=== PATIENT | female | born 2000 | race Caucasian/White ===

== ENCOUNTER 2023-06-08 11:46 | Outpatient (AMB) | payer OTHER, SELFPAY ==
--- NOTE | 2023-06-08 11:50 | MHC.OFFWIV ---
Intake Vital Signs 06/08/23 11:51 Weight 169 lb BP 110/70 Blood Pressure Location Rt brachial Position Sitting Pulse 76 Pulse Source Pulse Oximeter Temp 98 F Temp Source Temporal Artery Scan Pulse Oximetry (%) 99 Oxygen Delivery Method Room Air Intake Visit Reasons: EST/lost voice Intake Note: Patient here because she has lost her voice, sore throat, cough and headaches which has been present for about 3 days but today it has worsened. Patient Tobacco Use Status: Never used Tobacco Allergies laughing gas Adverse Reaction (Uncoded 06/08/23 11:53) upset stomach Do you need a note to return to daycare/school/sports/work: Yes HPI HPI Comments History of Present Illness Details 22-year-old female who presents for sore throat x3 days. She endorses pain with swallowing, loss of voice. 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 Housing: House Patient Tobacco Use Status: Never used Tobacco e-Cigarette/Vaping Use: Never Used service: No Current occupational status: employed Cognitive needs: No Hearing needs: No Vision needs: No Review of Systems Const All systems reviewed & are unremarkable except as noted in HPI and below Denies fever(s), Denies headache(s) and Denies weakness Eyes Reports no additional complaints ENT Reports change in voice, Denies headache(s) and Reports sore throat Card Reports no additional complaints, Denies chest pain, Denies leg edema and Denies dyspnea Resp Denies cough and Denies dyspnea GI Denies abdominal pain, Denies nausea and Denies vomiting Denies urinary frequency and Denies dysuria Musc Reports no additional complaints Neuro Denies headache(s) and Denies weakness Psych Reports no additional complaints Endo Reports no additional complaints Physical Exam Vital Signs: Last Vital Signs Temp 98 F 06/08/23 11:51 Pulse 76 06/08/23 11:51 BP 110/70 06/08/23 11:51 Pulse Ox 99 06/08/23 11:51 Oxygen Delivery Method Room Air 06/08/23 11:51 Const General: healthy appearing, well developed and alert HEENT Other: erythema in the posterior pharynx. Tonsils 1+ bilaterally. No exudates. Uvula midline no trismus . voice is hoarse. No drooling airway maintained Results AMB Rapid Strep AMB Rapid Strep Negative Last Edit by ENRIKE Hector on 06/08/23 13:05 Assessment & Plan Assessment & Plan (1) Laryngitis: Code(s): J04.0 - Acute laryngitis (2) Pharyngitis: Code(s): J02.9 - Acute pharyngitis, unspecified Plan VSS. On exam patient presents alert and oriented exam notable for erythema in the posterior pharynx. Tonsils 1+ bilaterally. No exudates. Uvula midline no trismus . voice is hoarse. No drooling airway maintained. strep swab negative. Likely viral will prescribe 1 dose of dexamethasone as well as Toradol. Discharge instructions, follow up and treatment are discussed with patient in my usual fashion. Alternatives in treatment are also discussed. The patient will return for worsening symptoms or as needed. Advised that any labs/imaging ordered will be followed up on and contact made if further treatment needed. Counseled that patient's condition may require further evaluation and/or treatment. Symptoms of concern for worsening disorder discussed in detail in my customary manner. Patient does verbalize understanding of the plan, there are no apparent barriers to communication. The patient is given the opportunity to ask questions and have them answered to his/her satisfaction Orders: Orders AMB Rapid Strep Screen Today Z13.9 - Encounter for screening, unspecified Medications: New dexamethasone 6 mg PO DAILY 1 tab 0RF ketorolac 10 mg PO TID 5 days PRN 15 tabs 0RF pain Patient Instructions: You short dose likely viral experiencing worsening symptoms such as difficulty breathing difficulty swallowing, drooling, fever or concerning symptoms not mentioned above please present to the emergency room Coding Level of Care Code Est Pt Level 3 (44589) Diagnoses Laryngitis J04.0 Pharyngitis J02.9
[2023-06-08 11:51] VITALS: BP 110/70; PULSE 76; TEMP 36.6; O2SAT 99
== END 2023-06-08 12:25 | disposition home or self-care (01) ==
PROVIDERS: PCP Internal Medicine; Visit Provider Physician Assistant
DX: J04.0 Acute laryngitis (principal); J02.9 Acute pharyngitis, unspecified
CPT/HCPCS: 87880; 99213

== ENCOUNTER 2023-07-13 08:00 | Outpatient (RCR) | payer OTHER, SELFPAY ==
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
--- NOTE | 2023-08-09 09:12 | MHC.PT.DC ---
[facility] [place] Office [place] Office [place] Office [address] [phone] F: [phone] F: [phone] F: [phone] F: [phone] Physical Therapy Discharge Report Diagnosis: Low back pain, unspecified Date of Surgery: NA Date of Evaluation: 04/26/23 Date of Discharge: 08/09/23 Treatments to Date: 12 Cancellations to Date: 3 No Shows to Date: 0 Discharge Status: Achieved Goals Improved Function Independent with HEP Discharge Summary: Taylor has completed 12 PT visits and has achieved all goals set for her. She is independent with her HEP and has been doing them on a regular basis. She is therefore being d/c from PT today. Reviewed performing HEP in pain-free ranges and pacing self with gradual increase in resistance as her strength continues to improve Electronically signed by: Gin Fraser PT Please sign and return to therapist. Thank you for your referral.
== END 2023-08-09 09:12 | disposition home or self-care (01) ==
LOC: HO.PT 08:00
PROVIDERS: PCP Internal Medicine; Visit Provider Internal Medicine
DX: M54.50 Low back pain, unspecified (principal)
CPT/HCPCS: 97110; 97112; 97140; 97161

== ENCOUNTER 2023-08-18 12:25 | Outpatient (REF) | payer OTHER, SELFPAY | END 2023-08-18 12:26 | disposition home or self-care (01) | LOC: HO.HMGCLNP 12:25 | PROVIDERS: Visit Provider Internal Medicine | DX: Z12.4 Encounter for screening for malignant neoplasm of cervix (principal); N92.6 Irregular menstruation, unspecified | CPT/HCPCS: 88142 ==

== ENCOUNTER 2023-08-18 14:27 | Outpatient (AMB) | payer OTHER, SELFPAY ==
[2023-08-18 14:27] VITALS: BP 110/64; PULSE 69; O2SAT 98; BMI 24.9
--- NOTE | 2023-08-18 14:27 | A.OFFPC_ITS ---
Vital Signs 08/18/23 14:27 Height 5 ft 8.75 in Weight 167 lb 2 oz BMI 24.9 BP 110/64 Blood Pressure Location Rt brachial Position Sitting Pulse 69 Pulse Source Pulse Oximeter Pulse Oximetry (%) 98 Oxygen Delivery Method Room Air Intake Visit Reasons: RT Lump breast/Heavy Bleeding a/Menstrual cycle Intake Note: pt is here for a lump in her right breast that is going away but it was hard and swollen pt says their was some bruising pt has c/o bloody discharge since her menstrual cycle has stopped for the past week Allergies laughing gas Adverse Reaction (Uncoded 08/18/23 14:31) upset stomach Medication List - Last Reconciled 08/18/23 by Laura Leal MD No Known Home Meds Tobacco use date assessed: 08/18/23 Dental Screening Dental Screen Date: 08/18/23 Did you have a dental visit in the last 12 months?: Yes Did you have a dental problem in the last 6 months where you did not have access to dental care?: No Was dental information given to patient?: Patient has dentist HPI RT Lump breast/Heavy Bleeding a/Menstrual cycle HPI Details Pt c/o irregular vaginal bleeding/spotting on and off for a few months but increased in duration and intensity last month. Pt is sexually active using condoms.Pt noticed a tender lump on R breast 2 weeks ago for 3 days. She has been under a lot of stress at work, working in [employer] in [employer]. Pt c/o increased anxiety but denies depression/suicidal ideation. 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 Arias Blackburn, Bhavani Harrell, Eugene Kenny and colleagues, with an educational bradly from [employer]. Review of Systems Const All systems reviewed & are unremarkable except as noted in HPI and below Reports no additional complaints Eyes Reports no additional complaints ENT Reports no additional complaints Card Reports no additional complaints Resp Reports no additional complaints Physical exam (Primary Care) Vital Signs: Last Vital Signs Pulse 69 08/18/23 14:27 BP 110/64 08/18/23 14:27 Pulse Ox 98 08/18/23 14:27 Oxygen Delivery Method Room Air 08/18/23 14:27 BMI result Body Mass Index 24.9 Tobacco/Smoking Status: Tobacco use Status Tobacco use date assessed 08/18/23 08/18/23 14:34 Patient Tobacco Use Status Never used Tobacco 08/18/23 14:34 e-Cigarette/Vaping Use Never Used 08/18/23 14:34 Thrive Assessment: Date of Thrive Assessment Date Thrive assessed 01/17/23 08/18/23 14:34 Const General: no acute distress HENMT Head: Yes normal to inspection Neck Neck: Yes no lymphadenopathy and Yes supple Chest Breast/axilla inspection: normal inspection of the breasts Breast/axilla palpation: normal palpation of the breasts and no axillary lymphadenopathy Resp Effort & Inspection: normal respiratory effort Auscultation: clear to auscultation bilaterally Cardio Rhythm: regular rhythm Heart sounds: S1 normal heart sound present and S2 normal heart sound present GI Inspection: Yes normal to inspection Palpation (GI): Soft to palpation Percussion: Yes normal to percussion Auscultation: normal bowel sounds External Female Exam: normal external appearance Speculum Exam - Vagina: normal appearance of the vagina Speculum Exam - Cervix: normal appearance of the cervix Bimanual exam- vagina & uterus: normal bimanual exam Assessment and Plan Assessment & Plan (1) Irregular menstrual bleeding: Code(s): N92.6 - Irregular menstruation, unspecified Plan: check labs, STD, refer to hydro pneumatic tester. PAP done today (2) Anxiety: Code(s): F41.9 - Anxiety disorder, unspecified Plan: refer to counseling, pt declined meds Orders: Orders Comprehensive Met. Panel Today Z00.00 - Encounter for general adult medical examination without abnormal findings Complete Blood Count Auto Diff Today Z00.00 - Encounter for general adult medical examination without abnormal findings TSH reflex Free T4 Today Z00.00 - Encounter for general adult medical examination without abnormal findings Pap Smear Today N92.6 - Irregular menstruation, unspecified, Z00.00 - Encounter for general adult medical examination without abnormal findings CT NG by PCR Today F41.9 - Anxiety disorder, unspecified, N92.6 - Irregular menstruation, unspecified, Z00.00 - Encounter for general adult medical examination without abnormal findings Ur Preg Test Today N92.6 - Irregular menstruation, unspecified Lipid Panel Today Z00.00 - Encounter for general adult medical examination without abnormal findings IRON PROFILE Today Z00.00 - Encounter for general adult medical examination without abnormal findings HIV Ab/Ag Today F41.9 - Anxiety disorder, unspecified, N92.6 - Irregular menstruation, unspecified, Z00.00 - Encounter for general adult medical examination without abnormal findings Syphilis Screen Today F41.9 - Anxiety disorder, unspecified, N92.6 - Irregular menstruation, unspecified, Z00.00 - Encounter for general adult medical examination without abnormal findings Referrals Counseling Referral F41.9 - Anxiety disorder, unspecified 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
== END 2023-08-18 15:33 | disposition home or self-care (01) ==
LOC: HO.HMGC 14:27
PROVIDERS: PCP Internal Medicine; Visit Provider Internal Medicine
DX: N92.6 Irregular menstruation, unspecified (principal); F41.9 Anxiety disorder, unspecified
CPT/HCPCS: 99214

== ENCOUNTER 2023-08-24 10:50 | Outpatient (REF) | payer OTHER, SELFPAY | END 2023-08-24 10:51 | disposition home or self-care (01) | LOC: HO.LAB 10:50 | PROVIDERS: Visit Provider Internal Medicine | DX: Z13.89 Encounter for screening for other disorder (principal) ==

== ENCOUNTER 2023-10-23 12:17 | Outpatient (AMB) | payer OTHER, SELFPAY ==
--- NOTE | 2023-10-23 12:21 | MHC.OFFVIS ---
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 Required: No Information Interpreted: non-clinical & clinical Team Manager: Team Manager Present (Aidyn) Allergies laughing gas Adverse Reaction (Uncoded 10/23/23 12:29) upset stomach Is last menstrual period known: Yes Last menstrual period: 10/16/23 Post menopausal: No HPI HPI Comments History of Present Illness Details Presenting referred from PCP regarding abnormal Pap smear showing LSIL on Pap smear, no HPV done, in addition patient is complaining of intermenstrual spotting for the last 3 months PFSH Surgical History Hx of wisdom tooth extraction History of hernia surgery Family History Maternal Grandmother Breast cancer Maternal Aunt Breast cancer Social History Household Members Other:: living with parents, 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, 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2 General: Yes no CVA tenderness External Female Exam: normal external appearance and normal appearance of the urethra Speculum Exam - Vagina: normal appearance of the vagina, normal palpation, no lesions and no masses Speculum Exam - Cervix: normal appearance of the cervix, normal palpation, no lesions, no masses and nontender Bimanual exam- vagina & uterus: normal bimanual exam, normal palpation, uterine size normal, normal palpation, uterine shape normal, No Cervical tenderness present and non-tender Bimanual Exam- Adnexa, other: normal adnexae Back/Spine/Pelvis Back: no CVA tenderness Assessment & Plan Assessment & Plan (1) Low grade squamous intraepith lesion on cytologic smear cervix (lgsil): Code(s): R87.612 - Low grade squamous intraepithelial lesion on cytologic smear of cervix (LGSIL) Plan: Per ASCCP guidelines management of MARY JO 1 below the age of 25, repeat cytology testing in 1 year, in 09/01. Instructions given the patient to schedule an appointment in 09/01 for repeat cytology. All questions answered, the patient verbalized understanding. (2) Abnormal uterine bleeding: Code(s): N93.9 - Abnormal uterine and vaginal bleeding, unspecified Plan: GC and chlamydia taken CBC, TSH, prolactin HCG, and pelvic ultrasound ordered. Discussed with the patient the different causes of abnormal bleeding including thyroid disorders, uterine and ovarian pathology and other potential causes. Discussed with the patient the work up including CBC (to r/o anemia), TSH, pelvic Ultrasound. All questions answered and the patient verbalized understanding. Instructed the patient to schedule an appointment for an endometrial biopsy in 2 weeks. Orders: Orders HCG Quantitative Today N93.9 - Abnormal uterine and vaginal bleeding, unspecified Prolactin Today N93.9 - Abnormal uterine and vaginal bleeding, unspecified US pelvic and transvaginal Today N93.9 - Abnormal uterine and vaginal bleeding, unspecified Complete Blood Count no Diff Today N93.9 - Abnormal uterine and vaginal bleeding, unspecified TSH reflex Free T4 Today N93.9 - Abnormal uterine and vaginal bleeding, unspecified Coding Level of Care Code New Pt Level 3 (86501) Diagnoses Low grade squamous intraepith lesion on cytologic smear cervix (lgsil) R87.612 Abnormal uterine bleeding N93.9
[2023-10-23 12:22] VITALS: BP 120/72; BMI 25.2
== END 2023-10-23 12:58 | disposition home or self-care (01) ==
LOC: HO.HWS 12:17
PROVIDERS: PCP Internal Medicine; Visit Provider Obstetrics & Gynecology
DX: R87.612 Low grade squamous intraepithelial lesion on cytologic smear of cervix (LGSIL) (principal); N93.9 Abnormal uterine and vaginal bleeding, unspecified
CPT/HCPCS: 99203

== ENCOUNTER 2023-10-23 12:17 | Outpatient (REF) | payer OTHER, SELFPAY ==
[2023-10-24 11:19] LABS: CT PCR NOT DETECTED (Not Detect.); NG PCR NOT DETECTED (Not Detect.)
== END 2023-10-23 12:18 | disposition home or self-care (01) ==
LOC: HO.LNP 12:17
PROVIDERS: PCP Internal Medicine; Visit Provider Obstetrics & Gynecology
DX: N93.9 Abnormal uterine and vaginal bleeding, unspecified (principal); Z20.2 Contact with and (suspected) exposure to infections with a predominantly sexual mode of transmission
CPT/HCPCS: 0353U

== ENCOUNTER 2023-11-14 16:22 | Outpatient (REF) | payer OTHER, SELFPAY ==
--- NOTE | ~2023-11-14 | US_ITS ---
EXAMINATION: US PELVIS CLINICAL INFORMATION: Abnormal uterine bleeding; the patient is currently having her menstrual period. COMPARISON: None available. TECHNIQUE: Ultrasound of the pelvis is performed using both transabdominal and transvaginal transducers along with Doppler. Transvaginal imaging is performed due to inadequate visualization transabdominally. FINDINGS: Uterus: The uterus is anteverted and measures 7.6 x 2.8 x 4.0 cm. The double wall endometrial thickness is 5 mm. The uterus is smooth in contour and has normal myometrial echogenicity. No visible fibroid. Adnexa: Both ovaries are visualized. There is normal color flow to the adnexa. There is no ovarian torsion. There is no pelvic ascites or fluid collection. Right ovary measures 2.4 x 2.1 x 2.4 cm, volume 6.3 mL. Physiologic follicles are incidentally noted. Left ovary measures 1.6 x 1.1 x 1.3 cm, volume 1.2 mL. US/US pelvic and transvaginal IMPRESSION: Unremarkable examination.
== END 2023-11-14 16:23 | disposition home or self-care (01) ==
LOC: HO.US 16:22
PROVIDERS: PCP Internal Medicine; Visit Provider Obstetrics & Gynecology
DX: N93.9 Abnormal uterine and vaginal bleeding, unspecified (principal)
CPT/HCPCS: 76830; 76856

== ENCOUNTER 2023-12-05 15:24 | Outpatient (AMB) | payer OTHER, SELFPAY ==
--- NOTE | 2023-12-05 15:29 | A.OFFVIS_ITS ---
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 TSH, CBC, prolactin, hCG were not done yet. GC/chlamydia were negative. 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 Patient Tobacco Use Status: Never used Tobacco e-Cigarette/Vaping Use: Never Used service: No Current occupational status: employed Cognitive needs: No Hearing needs: No Vision needs: No Female Reproductive History Menstrual Age of Menarche: 15 Date of last menstrual period: 11/10/23 Review of Systems Const All systems reviewed & are unremarkable except as noted in HPI and below Reports as per HPI and Reports no additional complaints GI Reports no additional complaints Reports no additional complaints Physical Exam Vital Signs: Last Vital Signs BP 110/70 12/05/23 15:33 BMI result Body Mass Index 25.1 Assessment & Plan Assessment & Plan (1) Abnormal uterine bleeding: Code(s): N93.9 - Abnormal uterine and vaginal bleeding, unspecified Plan: Instructions given the patient to have her blood drawn as soon as possible. Discussed with the patient the results of the work up done and options of treatment including BCP's, cyclic Provera, Mirena IUD. All pros, cons, risks and benefits if each option was discussed with the patient and the patient decided to think about it and get back to us. All questions answered the patient verbalized understanding. Coding Level of Care Code Est Pt Level 3 (12580) Diagnoses Abnormal uterine bleeding N93.9
[2023-12-05 15:33] VITALS: BP 110/70; BMI 25.1
== END 2023-12-05 16:20 | disposition home or self-care (01) ==
LOC: HO.HWS 15:25
PROVIDERS: PCP Internal Medicine; Visit Provider Obstetrics & Gynecology
DX: N93.9 Abnormal uterine and vaginal bleeding, unspecified (principal)
CPT/HCPCS: 99213

== ENCOUNTER → 2023-12-05 15:24 | Outpatient (BNVA) | payer OTHER, SELFPAY | PROVIDERS: PCP Internal Medicine; Visit Provider Obstetrics & Gynecology ==

== ENCOUNTER 2024-01-26 08:27 | Outpatient (AMB) | payer OTHER, SELFPAY ==
[2024-01-23 13:15] VITALS: BP 112/64; PULSE 74; O2SAT 99; BMI 25.1
--- NOTE | 2024-01-23 13:15 | A.OFFPC_ITS ---
Vital Signs 01/23/24 13:15 Height 5 ft 8 in Weight 165 lb BMI 25.1 BP 112/64 Blood Pressure Location Rt brachial Position Sitting Pulse 74 Pulse Source Pulse Oximeter Pulse Oximetry (%) 99 Oxygen Delivery Method Room Air Intake Visit Reasons: Annual PE Intake Note: Pt is here today for ehr PE Is last menstrual period known: Yes Last menstrual period: 01/24/24 Allergies laughing gas Adverse Reaction (Uncoded 01/26/24 08:32) upset stomach Medication List - Last Reconciled 01/26/24 by Laura Leal MD No Known Home Meds Tobacco use date assessed: 01/26/24 Dental Screening Dental Screen Date: 01/26/24 Did you have a dental visit in the last 12 months?: Yes Did you have a dental problem in the last 6 months where you did not have access to dental care?: No Was dental information given to patient?: Patient has dentist HPI Annual PE HPI Details Pt presents for PE. Pt c/o chronic anxiety and is under therapist care. Pt c/o chronic vaginal spotting after working out at the gym. Pt was seen by plant operations manager and had pap c/w MARY JO 1 in August last year. Patient has an appointment scheduled with centrifugal chiller technician at [facility] for repeat Pap smear in August. 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 1. Little interest or pleasure in doing things: not at all 2. Feeling down, depressed, or hopeless: several days 3. Trouble falling or staying asleep, or sleeping too much: not at all 4. Feeling tired or having little energy: several days 5. Poor appetite or overeating: more than half the days 6. Feeling bad about yourself - or that you are a failure or have let yourself or your family down: nearly every day 7. Trouble concentrating on things, such as reading the newspaper or watching television: several days 8. Moving or speaking so slowly that other people could have noticed. Or the opposite - being so fidgety or restless that you have been moving around a lot more than usual: not at all 9. Thoughts that you would be better off or of hurting yourself in some way: not at all Total score: 8 Depression Screening Interpretation: Negative Depression Screening Done: Yes Source: Developed by Drs. Arias Blackburn, Bhavani Harrell, Eugene Kenny and colleagues, with an educational bradly from [employer]. Thrive Questionnaire Date Thrive assessed: 01/26/24 I am a: Patient What is your living situation today?: I have a steady place to live Within the past 12 months, did the food you bought not last and you didn't have the money to get more?: Never true Within the past 12 months, did you worry whether your food would run out before you got money to buy more?: Never true Do you have trouble paying for medicines?: No Do you have trouble getting transportation to medical appointments?: No Do you have trouble paying your heating and electricity bill?: No Do you have trouble taking care of your child, family member or friend?: No Do you have trouble with day-to-day activities such as bathing, preparing meals, shopping, managing finances, etc.?: No Are you currently unemployed and looking for a job?: No Are you interested in more education?: No THRIVE Score: 0 AUDIT C Alcohol Use Questionnaire (AUDIT-C) 1. How often do you have a drink containing alcohol?: Monthly or less 2. How many drinks containing alcohol do you have on a typical day when you are drinking?: 1 or 2 3. How often do you have six or more drinks on one occasion?: Never Total Score: 1 ROBBIN-7 AMB Questionnaire ROBBIN-7 Date ROBBIN - 7 assessed: 01/26/24 Feeling nervous, anxious, or on edge: 3 = Nearly every day Not being able to stop or control worryin = Nearly every day Worrying too much about different things: 3 = Nearly every day Trouble relaxin = Nearly every day Being so restless that it is hard to sit still: 2 = More than half the days Becoming easily annoyed or irritable: 1 = Several days Feeling afraid as if something awful might happen: 2 = More than half the days Total ROBBIN-7 score (0-4 normal; 5-9 mild; 10-14 moderate; 15-21 severe): 17 Source: Developed by Drs. Arias Blackburn, Bhavani Harrell, Eugene Kenny and colleagues, with an educational bradly from [employer]. Review of Systems Const All systems reviewed & are unremarkable except as noted in HPI and below Eyes Reports no additional complaints ENT Reports no additional complaints Card Reports no additional complaints Resp Reports no additional complaints GI Reports no additional complaints Reports no additional complaints Physical exam (Primary Care) Vital Signs: Last Vital Signs Pulse 74 01/23/24 13:15 BP 112/64 01/23/24 13:15 Pulse Ox 99 01/23/24 13:15 Oxygen Delivery Method Room Air 01/23/24 13:15 BMI result Body Mass Index 25.1 Tobacco/Smoking Status: Tobacco use Status Tobacco use date assessed 01/26/24 01/26/24 08:36 Patient Tobacco Use Status Never used Tobacco 01/23/24 13:15 e-Cigarette/Vaping Use Never Used 01/23/24 13:15 PHQ-9: PHQ-9 Score PHQ-9: Total score 8 01/26/24 11:37 Depression Screening Interpretation: Negative Thrive Assessment: Date of Thrive Assessment Date Thrive assessed 01/26/24 01/26/24 08:36 Const General: no acute distress HENMT Head: Yes normal to inspection Ears: hearing grossly normal bilaterally Face and sinus: Yes normal facial exam Mouth: Normal oral and palatal mucosa present Eyes General: appearance normal, both eyes and all related structures Neck Neck: Yes no lymphadenopathy and Yes supple Resp Effort & Inspection: normal respiratory effort Auscultation: clear to auscultation bilaterally Cardio Rhythm: regular rhythm Heart sounds: S1 normal heart sound present and S2 normal heart sound present GI Inspection: Yes normal to inspection Palpation (GI): Soft to palpation Percussion: Yes normal to percussion Auscultation: normal bowel sounds Assessment and Plan Assessment & Plan (1) Annual physical exam: Code(s): Z00.00 - Encounter for general adult medical examination without abnormal findings Plan: Well-balanced diet regular physical activity discussed with the patient (2) Low grade squamous intraepith lesion on cytologic smear cervix (lgsil): Comment: Follow-up with [facility] Code(s): R87.612 - Low grade squamous intraepithelial lesion on cytologic smear of cervix (LGSIL) Coding Level of Care Code Est Pt Prev Care 18-39y(36751) Diagnoses Annual physical exam Z00.00 Low grade squamous intraepith lesion on cytologic smear cervix (lgsil) R87.612
== END 2024-01-26 13:21 | disposition home or self-care (01) ==
PROVIDERS: PCP Internal Medicine; Visit Provider Internal Medicine
DX: Z00.00 Encounter for general adult medical examination without abnormal findings (principal); R87.612 Low grade squamous intraepithelial lesion on cytologic smear of cervix (LGSIL)
CPT/HCPCS: 99395

== ENCOUNTER 2024-08-06 09:17 | Outpatient (REF) | payer OTHER, SELFPAY ==
[2024-08-06 09:41] LABS: MANUAL DIFF FLAG NO
[2024-08-06 10:08] LABS: Basophils Percent Auto 0.2 % (0-2); Eosinophils Absolute Auto 0.1 X10*3/uL (0.0-0.4); Eosinophils Percent Auto 1.2 % (0-4); Hemoglobin 12.7 g/dl (12.0-16.0); Imm Gran Abs Auto 0.01 X10*3/uL (0.00-0.03); Imm Gran Pct Auto 0.2 % (0.0-0.4); Lymphocytes Absolute Auto 1.4 X10*3/uL (1.2-4.9); Lymphocytes Percent Auto 33.4 % (20-40); Mean Corpuscular HGB Conc 33.4 g/dl (31.0-35.0); Mean Corpuscular Hemoglobin 31.2 pg (27.0-33.0); Mean Corpuscular Volume 93.4 fL (80.0-98.0); Monocytes Absolute Auto 0.4 X10*3/uL (0.1-1.2); Monocytes Percent Auto 10.9 % (2-11); Neutrophils Absolute Auto 2.2 x10*3/uL (2.0-8.3); Neutrophils Percent Auto 54.1 % (45-73); Platelet Count 218 X10*3/uL (160-400); Red Blood Count 4.07 X10*6/uL (4.20-5.50); Red Cell Distribution Width 12.1 % (11.0-16.0)
[2024-08-06 10:09] LABS: Hematocrit 38.9 % (37.0-47.0); Hemoglobin 12.8 g/dl (12.0-16.0); Mean Corpuscular HGB Conc 32.9 g/dl (31.0-35.0); Mean Corpuscular Volume 94.2 fL (80.0-98.0); Mean Platelet Volume 10.9 fL (9.4-12.3); Platelet Count 222 X10*3/uL (160-400); Red Blood Count 4.13 X10*6/uL (4.20-5.50); White Blood Count 4.2 X10*3/uL (4.8-10.8)
[2024-08-06 10:46] LABS: UPreg QC Valid YES; Urine Pregnancy NEGATIVE (NEGATIVE)
[2024-08-06 11:00] LABS: Alanine Aminotransferase 16 U/L (0-31); Albumin Level 4.4 g/dL (3.5-5.0); Alkaline Phosphatase 31 U/L (39-117); Anion Gap 13 (12-20); Aspartate Amino Transferase 27 U/L (5-31); Bilirubin Total 1.5 mg/dL (0.0-1.0); Blood Urea Nitrogen 11 mg/dL (9-16); Calcium 9.4 mg/dL (8.4-10.2); Carbon Dioxide 24 mmol/L (22-29); Chloride 106 mmol/L (96-108); Cholesterol 125 mg/dL (<200); Estimated Glomerular Filt Rate > 60; Glucose Random 85 mg/dL (60-115); HDL Cholesterol 46 mg/dL (>40); Iron 176 mcg/dL (30-160); LDL Cholesterol Calculated 64 mg/dL (<100); Percent Iron Saturation 63 % (15-50); Sodium 139 mmol/L (135-145); Total Iron Binding Capacity 280 mcg/dL (228-428); Total Protein 7.2 g/dL (6.5-8.0); Triglycerides 78 mg/dL (<150); Unsaturated Iron Binding 104 ug/dL
[2024-08-06 11:01] LABS: HCG Quantitative < 2 mIU/mL; TSH reflex Free T4 1.09 uIU/mL (0.32-4.0)
[2024-08-06 11:23] LABS: TSH reflex Free T4 1.01 uIU/mL (0.32-4.0)
[2024-08-06 11:44] LABS: HIV AB/AG Nonreactive (Nonreactive); HIV Num 1 0.06 S/CO (0.00-0.99)
[2024-08-06 11:45] LABS: Syphilis Screen Nonreactive (Nonreactive)
[2024-08-06 14:01] LABS: CT PCR NOT DETECTED (Not Detect.); NG PCR NOT DETECTED (Not Detect.)
[2024-08-08 01:14] LABS: Prolactin 5.9 ng/mL
== END 2024-08-06 09:18 | disposition home or self-care (01) ==
LOC: HO.LAB 09:17
PROVIDERS: Absent Provider Obstetrics & Gynecology; PCP Internal Medicine; Visit Provider Internal Medicine
DX: Z00.00 Encounter for general adult medical examination without abnormal findings (principal); F41.9 Anxiety disorder, unspecified; N92.6 Irregular menstruation, unspecified; N93.9 Abnormal uterine and vaginal bleeding, unspecified
CPT/HCPCS: 36415; 80053; 80061; 81025; 83540; 84146; 84443; 84702; 85025; 85027; 86780; 87389; 87491; 87591

== ENCOUNTER 2025-03-07 11:06 | Outpatient (AMB) | payer OTHER, SELFPAY ==
--- NOTE | 2025-03-07 11:12 | A.OFFPC_ITS ---
Vital Signs 03/07/25 11:13 Height 5 ft 8 in Weight 167 lb BMI 25.4 BP 130/74 Blood Pressure Location Lt brachial Position Sitting Respiration 18 Pulse 62 Pulse Source Pulse Oximeter Temp 98.5 F Temp Source Oral Pulse Oximetry (%) 98 Oxygen Delivery Method Room Air Intake Visit Reasons: Annual PE-Reschedule Intake Note: Pt is here today for PE. Allergies laughing gas Adverse Reaction (Uncoded 03/07/25 11:15) upset stomach Tobacco use date assessed: 03/07/25 Dental Screening Dental Screen Date: 03/07/25 Did you have a dental visit in the last 12 months?: Yes Did you have a dental problem in the last 6 months where you did not have access to dental care?: No Was dental information given to patient?: Patient has dentist HPI Annual PE-Reschedule HPI Details Pt presents for PE. Patient broke up with her boyfriend a week ago and it is grieving. 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 1. Little interest or pleasure in doing things: nearly every day 2. Feeling down, depressed, or hopeless: nearly every day 3. Trouble falling or staying asleep, or sleeping too much: nearly every day 4. Feeling tired or having little energy: nearly every day 5. Poor appetite or overeating: nearly every day 6. Feeling bad about yourself - or that you are a failure or have let yourself or your family down: nearly every day 7. Trouble concentrating on things, such as reading the newspaper or watching television: more than half the days 8. Moving or speaking so slowly that other people could have noticed. Or the opposite - being so fidgety or restless that you have been moving around a lot more than usual: not at all 9. Thoughts that you would be better off or of hurting yourself in some way: several days Total score: 21 Depression Screening Interpretation: Positive (Patient is established with a counselor she declined medications) Depression Screening Follow-up: Existing condition and In treatment Depression Screening Done: Yes 30673 - PHQ-9 Billing: Yes Source: Developed by Drs. Arias Blackburn, Bhavani Harrell, Eugene Kenny and colleagues, with an educational bradly from [employer]. Thrive Questionnaire Date Thrive assessed: 03/07/25 I am a: Patient What is your living situation today?: I have a steady place to live Within the past 12 months, did the food you bought not last and you didn't have the money to get more?: Never true Within the past 12 months, did you worry whether your food would run out before you got money to buy more?: Never true Do you have trouble paying for medicines?: No Do you have trouble getting transportation to medical appointments?: No Do you have trouble paying your heating and electricity bill?: No Do you have trouble taking care of your child, family member or friend?: No Do you have trouble with day-to-day activities such as bathing, preparing meals, shopping, managing finances, etc.?: No Are you currently unemployed and looking for a job?: No Are you interested in more education?: Yes Please select the resources that you would like help with: None Currently or been in a relationship where the following occur: No concerns reported THRIVE Score: 0 AUDIT C Alcohol Use Questionnaire (AUDIT-C) 1. How often do you have a drink containing alcohol?: 2-4 times a month 2. How many drinks containing alcohol do you have on a typical day when you are drinking?: 1 or 2 3. How often do you have six or more drinks on one occasion?: Never Total Score: 2 ROBBIN-7 AMB Questionnaire ROBBIN-7 Date ROBBIN - 7 assessed: 03/07/25 Feeling nervous, anxious, or on edge: 3 = Nearly every day Not being able to stop or control worryin = Nearly every day Worrying too much about different things: 3 = Nearly every day Trouble relaxin = Nearly every day Being so restless that it is hard to sit still: 1 = Several days Becoming easily annoyed or irritable: 1 = Several days Feeling afraid as if something awful might happen: 2 = More than half the days Total ROBBIN-7 score (0-4 normal; 5-9 mild; 10-14 moderate; 15-21 severe): 16 Source: Developed by Drs. Arias Blackburn, Bhavani Harrell, Eugene Kenny and colleagues, with an educational bradly from [employer]. ROBBIN-7 Assessment Billing ROBBIN-7 Assessment Tool: ROBBIN-7 Assessment 71373 Review of Systems Const All systems reviewed & are unremarkable except as noted in HPI and below Eyes Reports no additional complaints ENT Reports no additional complaints Card Reports no additional complaints Resp Reports no additional complaints GI Reports no additional complaints Reports no additional complaints Physical exam (Primary Care) Vital Signs: Last Vital Signs Temp 98.5 F 03/07/25 11:13 Pulse 62 03/07/25 11:13 Resp 18 03/07/25 11:13 BP 130/74 03/07/25 11:13 Pulse Ox 98 03/07/25 11:13 Oxygen Delivery Method Room Air 03/07/25 11:13 BMI result Body Mass Index 25.4 Tobacco/Smoking Status: Tobacco use Status Tobacco use date assessed 03/07/25 03/07/25 11:17 Patient Tobacco Use Status Never used Tobacco 03/07/25 11:13 e-Cigarette/Vaping Use Never Used 03/07/25 11:13 PHQ-9: PHQ-9 Score PHQ-9: Total score 21 03/07/25 11:17 Depression Screening Interpretation: Positive (Patient is established with a counselor she declined medications) Depression Screening Follow-up: Existing condition and In treatment Thrive Assessment: Date of Thrive Assessment Date Thrive assessed 03/07/25 03/07/25 11:17 Currently or been in a relationship where the following occur: No concerns reported Const General: no acute distress HENMT Head: Yes normal to inspection Ears: hearing grossly normal bilaterally Face and sinus: Yes normal facial exam Mouth: Normal oral and palatal mucosa present Throat: Yes posterior oropharynx normal Eyes General: appearance normal, both eyes and all related structures Neck Neck: Yes no lymphadenopathy and Yes supple Resp Effort & Inspection: normal respiratory effort Auscultation: clear to auscultation bilaterally Cardio Rhythm: regular rhythm Heart sounds: S1 normal heart sound present and S2 normal heart sound present GI Inspection: Yes normal to inspection Palpation (GI): Soft to palpation Percussion: Yes normal to percussion Auscultation: normal bowel sounds Coding Level of Care Code Est Pt Prev Care 18-39y(46517) Diagnoses Low grade squamous intraepith lesion on cytologic smear cervix (lgsil) R87.612 Annual physical exam Z00.00 Additional Codes ROBBIN-7 Assessment Billing - ROBBIN-7 Assessment Tool: ROBBIN-7 Assessment 78689 ([id number]) PHQ-9 - 28622 - PHQ-9 Billing: Yes ([id number]) Assessment & Plan Assessment & Plan (1) Low grade squamous intraepith lesion on cytologic smear cervix (lgsil): Comment: Follow-up with [facility]BG[facility] Code(s): R87.612 - Low grade squamous intraepithelial lesion on cytologic smear of cervix (LGSIL) Category: Medical Plan: Follow-up with [facility] central service technician every 6 months (2) Annual physical exam: Code(s): Z00.00 - Encounter for general adult medical examination without abnormal findings Category: Medical Plan: Well-balanced diet regular physical activity discussed with the patient
[2025-03-07 11:13] VITALS: BP 130/74; PULSE 62; RESP 18; TEMP 36.9; O2SAT 98; BMI 25.4
== END 2025-03-07 11:45 | disposition home or self-care (01) ==
LOC: HO.HMCC 11:07
PROVIDERS: PCP Internal Medicine; Visit Provider Internal Medicine
DX: R87.612 Low grade squamous intraepithelial lesion on cytologic smear of cervix (LGSIL) (principal); Z00.00 Encounter for general adult medical examination without abnormal findings

== ENCOUNTER → 2025-03-07 11:06 | Outpatient (BNVA) | payer OTHER, SELFPAY | PROVIDERS: PCP Internal Medicine; Visit Provider Internal Medicine | DX: Z00.00 Encounter for general adult medical examination without abnormal findings (principal); R87.612 Low grade squamous intraepithelial lesion on cytologic smear of cervix (LGSIL) | CPT/HCPCS: 96127 ==